=== PATIENT | female | born 1980 | race Caucasian/White ===

== ENCOUNTER 2018-05-11 09:18 | Emergency (ER) | payer MEDICAID ==
[~2018-05-11] VITALS: Ht 172.7 cm; Wt 52.0 kg
[~2018-05-11 09:18] MED LIST: ANXIETY; QUET400T6 PO
[2018-05-11 09:26] VITALS: BP 124/83
[2018-05-11] MEDS ORDERED: HYDROcodone/APAP 5/325 TABLET PO ONE (10:30)
[2018-05-11] MEDS ORDERED: HYDROcodone/APAP 5/325 TABLET ONE (10:36)
== END 2018-05-11 11:50 | disposition home or self-care (01) ==
LOC: ED 11:40
DX: S43.101A Unspecified dislocation of right acromioclavicular joint, initial encounter (principal); V89.2XXA Person injured in unspecified motor-vehicle accident, traffic, initial encounter; Y93.89 Activity, other specified; Y99.8 Other external cause status; Y92.410 Unspecified street and highway as the place of occurrence of the external cause
CPT/HCPCS: 99284

== ENCOUNTER 2018-08-29 01:02 | Emergency (ER) | payer MEDICAID ==
[~2018-08-29] VITALS: Ht 172.7 cm; Wt 53.6 kg
[~2018-08-29 01:02] MED LIST changes: -QUET400T6 PO; +QUET400T7 PO
[2018-08-29 01:07] VITALS: BP 120/85
[2018-08-29] MEDS ORDERED: IBUPROFEN 800 MG TABLET PO ONE (02:00)
== END 2018-08-29 01:53 ==
LOC: ED 01:27
DX: S01.331A Puncture wound without foreign body of right ear, initial encounter (principal); F31.9 Bipolar disorder, unspecified; F41.9 Anxiety disorder, unspecified; Z86.59 Personal history of other mental and behavioral disorders; X58.XXXA Exposure to other specified factors, initial encounter; Y93.89 Activity, other specified; Y92.89 Other specified places as the place of occurrence of the external cause; Y99.8 Other external cause status
CPT/HCPCS: 99283

== ENCOUNTER 2018-11-10 07:04 | Inpatient (IN) | payer MEDICAID, OTHER ==
[~2018-11-10] VITALS: Ht 172.7 cm; Wt 55.6 kg
[2018-11-10] MEDS ORDERED: FENTANYL PF 100 MCG/2ML ONE ×2 (08:19→09:39)
[2018-11-10] MEDS ORDERED: ONDANSETRON 2MG/ML, 2ML ONE ×2 (08:19→12:52)
[2018-11-10] MEDS ORDERED: DEXAMETHASONE 4 MG/ML, 1ML ONE ×2 (08:19→12:52)
[2018-11-10] MEDS ORDERED: ROCURONIUM 10MG/ML,5ML ONE ×2 (08:19→12:52)
[2018-11-10] MEDS ORDERED: GLYCOPYRROLATE 0.2MG/1ML, 5ML ONE ×2 (08:19→12:52)
[2018-11-10] MEDS ORDERED: SUCCINYLCHOLINE 20 MG/ML, 10ML ONE ×2 (08:19→12:52)
[2018-11-10] MEDS ORDERED: CEFAZOLIN 1,000 MG ONE ×2 (08:19→12:52)
[2018-11-10] MEDS ORDERED: NEOSTIGMINE 1 MG/ML, 10ML ONE ×2 (08:19→12:52)
[2018-11-10] MEDS ORDERED: PROPOFOL 10 MG/ML, 20ML ONE ×2 (08:19→12:52)
[2018-11-10] MEDS ORDERED: SODIUM CHLORIDE FLUSH 10ML SYR IVF PRN (08:30)
[2018-11-10] MEDS ORDERED: SODIUM CHLORIDE FLUSH 10ML SYR IVF ONE (08:30)
--- NOTE | 2018-11-10 08:45 | NUR ---
XR SHOWS FB IN THE ABD PT TO GO TO SURG FOR A SCOPE AND THEN POSS SURG
[2018-11-10] MEDS ORDERED: CEFOTETAN PMX 2GM/50ML 50 ML IVPB ONE (09:08)
[2018-11-10] MEDS ORDERED: PHENYLEPHRINE 10 MG/ML ONE (09:08)
[2018-11-10] MEDS ORDERED: MEPERIDINE/PF 25MG/0.5ML IVPush PRN ×2 (09:30→14:00)
[2018-11-10] MEDS ORDERED: OXYcodone 5 MG/5 ML ORAL.SOL UDC PO PRN ×2 (09:30→14:00)
[2018-11-10] MEDS ORDERED: ONDANSETRON 2MG/ML, 2ML IV PRN ×2 (09:30→14:00)
[2018-11-10] MEDS ORDERED: PROMETHAZINE 25 MG/ML, 1ML IV PRN ×2 (09:30→14:00)
[2018-11-10] MEDS ORDERED: FENTANYL PF 100 MCG/2ML IV PRN ×2 (09:30→14:00)
[2018-11-10] MEDS ORDERED: ACETAMINOPHEN 325 MG TABLET PO PRN ×2 (09:30→14:00)
[2018-11-10] MEDS ORDERED: ONDANSETRON ODT 8 MG PO PRN ×2 (09:30→14:00)
[2018-11-10] MEDS ORDERED: LORazepam 2 MG/ML, 1ML ONE (10:54)
[2018-11-10] MEDS: LORazepam 2 MG/ML, 1ML IVPush PRN ×2 (10:57→11:08)
[2018-11-10] MEDS ORDERED: HYDROmorphone 2 MG/ML, 1ML ONE (11:02)
[2018-11-10] MEDS: HYDROmorphone 2 MG/ML, 1ML IVPush PRN ×4 (11:04→14:19)
[2018-11-10] MEDS ORDERED: FENTANYL PF 250 MCG/5ML ONE ×2 (11:15→12:54)
[2018-11-10] MEDS ORDERED: LIDOCAINE-MPF 2% ,5ML ONE (11:46)
[2018-11-10] MEDS ORDERED: SUGAMMADEX 200 MG/2 ML IVPush ONE (12:52)
[2018-11-10] MEDS ORDERED: POTASSIUM CHLORIDE 20 MEQ in D5%-0.45% NACL 1,000 ML IV SCH (13:51)
[2018-11-10] MEDS ORDERED: LORazepam 2 MG/ML, 1ML IVPush PRN (14:00)
[2018-11-10] MEDS ORDERED: HYDROmorphone 2 MG/ML, 1ML IVPush PRN (14:00)
[2018-11-10] MEDS ORDERED: ONDANSETRON 2MG/ML, 2ML IVPush PRN ×2 (14:00→15:30)
[2018-11-10 15:15] VITALS: BP 116/17
[2018-11-10 15:32] VITALS: BP 114/81
[2018-11-10] MEDS: SODIUM CHLORIDE 0.9% 1,000 ML IV SCH (18:00)
[2018-11-10] MEDS: MORPHINE SULFATE 4 MG/ML, 1ML IVPush PRN (18:00)
[2018-11-10 18:55] VITALS: BP 107/77
[2018-11-10] MEDS: OXYcodone/APAP 5/325MG TABLET PO PRN (19:24)
[2018-11-10] MEDS: CEFOTETAN PMX 1GM/50ML 50 ML IVPB SCH (20:16)
[2018-11-11 00:15] VITALS: BP 120/72
[2018-11-11] MEDS: OXYcodone/APAP 5/325MG TABLET PO PRN ×5 (00:18→23:31)
[2018-11-11] MEDS: SODIUM CHLORIDE 0.9% 1,000 ML IV SCH (02:36)
[2018-11-11 05:06] VITALS: BP 124/72
[2018-11-11 05:49] LABS: BASOPHILS # (AUTO) 0.04 x10^3/uL (0-0.1); BASOPHILS % (AUTO) 0 % (0-1); EOSINOPHILS # (AUTO) 0.01 x10^3/uL (0-0.4); EOSINOPHILS % (AUTO) 0 % (1-7); LYMPHOCYTES # (AUTO) 3.52 x10^3/uL (1-3.4); LYMPHOCYTES % (AUTO) 24 % (22-44); MD NO; MEAN CORPUSCULAR HEMOGLOBIN 30.2 pg (27.0-34.8); MEAN CORPUSCULAR VOLUME 88.9 fL (80-100); MEAN PLATELET VOLUME 8.4 fL (7.4-10.4); MONOCYTES # (AUTO) 0.82 x10^3/uL (0.2-0.8); MONOCYTES % (AUTO) 6 % (2-9); NEUTROPHILS # (AUTO) 10.08 x10^3/uL (1.8-6.8); NEUTROPHILS % (AUTO) 70 % (42-75); PLATELET COUNT 272 x10^3/uL (130-400); RED BLOOD COUNT 3.92 x10^6/uL (3.82-5.3); RED CELL DISTRIBUTION WIDTH 14.2 % (9.6-15.2)
[2018-11-11 05:57] LABS: ALBUMIN 2.9 g/dL (3.4-5.0); ANION GAP 9 mmol/L (5-15); CHLORIDE 111 mmol/L (98-107); CREATININE 0.71 mg/dL (0.55-1.02)
[2018-11-11] MEDS ORDERED: PANTOPRAZOLE 40 MG IV IVPush SCH (07:30)
[2018-11-11] MEDS: MORPHINE SULFATE 4 MG/ML, 1ML IVPush PRN (07:53)
[2018-11-11] MEDS: CEFOTETAN PMX 1GM/50ML 50 ML IVPB SCH (07:53)
[2018-11-11 08:17] VITALS: BP 120/82
[2018-11-11 13:08] VITALS: BP 113/82
[2018-11-11] MEDS ORDERED: ENOXAPARIN 30 MG/0.3 ML SQ SCH (16:00)
[2018-11-12] VITALS (11 sets, daily range): BP systolic 100–123; BP diastolic 40–77
[2018-11-12] MEDS: OXYcodone/APAP 5/325MG TABLET PO PRN (04:06)
[2018-11-12] MEDS ORDERED: PANTOPROZOLE 40MG TABLET PO SCH (06:00)
[2018-11-12] MEDS ORDERED: OXYcodone/APAP 5/325MG TABLET PO PRN (08:00)
[2018-11-12] MEDS: DOCUSATE 100 MG CAPSULE PO SCH ×2 (09:16→20:30)
[2018-11-12] MEDS ORDERED: ENOXAPARIN 40 MG/0.4 ML SQ SCH (10:06)
[2018-11-12] MEDS ORDERED: KETOROLAC 30 MG/1 ML IM SCH (14:00)
[2018-11-12] MEDS: KETOROLAC 30 MG/1 ML IV SCH ×2 (14:22→20:30)
--- NOTE | 2018-11-12 16:54 | NUR ---
REGISTRATION,A5152 - Fall Risk Medication(s) present (DOCUSATE AND PERCOCET) and receiving anticoagulants (ENOXAPARIN). Signed: 11/12/18 at 1655 by Orly SMART
[2018-11-12] MEDS: ACETAMINOPHEN 650 MG/20.3 ML UDC PO PRN (17:53)
[2018-11-12 19:09] LABS: ANION GAP 8 mmol/L (5-15); CALCIUM 8.2 mg/dL (8.5-10.1); CHLORIDE 111 mmol/L (98-107)
[2018-11-12 19:12] LABS: ALANINE AMINOTRANSFERASE 14 U/L (12-78); ALKALINE PHOSPHATASE 73 U/L (45-117); BILIRUBIN,TOTAL 0.3 mg/dL (0.2-1.0); TOTAL PROTEIN 6.6 g/dL (6.4-8.2)
[2018-11-12 19:13] LABS: BASOPHILS # (AUTO) 0.03 x10^3/uL (0-0.1); BASOPHILS % (AUTO) 0 % (0-1); EOSINOPHILS # (AUTO) 0.16 x10^3/uL (0-0.4); EOSINOPHILS % (AUTO) 2 % (1-7); LYMPHOCYTES # (AUTO) 2.73 x10^3/uL (1-3.4); LYMPHOCYTES % (AUTO) 26 % (22-44); MD NO; MEAN CORPUSCULAR HEMOGLOBIN 30.2 pg (27.0-34.8); MEAN CORPUSCULAR HGB CONC 33.7 g/dL (32.4-35.8); MEAN CORPUSCULAR VOLUME 89.4 fL (80-100); MEAN PLATELET VOLUME 7.4 fL (7.4-10.4); MONOCYTES # (AUTO) 0.84 x10^3/uL (0.2-0.8); MONOCYTES % (AUTO) 8 % (2-9); NEUTROPHILS # (AUTO) 6.89 x10^3/uL (1.8-6.8); NEUTROPHILS % (AUTO) 65 % (42-75); PLATELET COUNT 321 x10^3/uL (130-400); RED BLOOD COUNT 4.16 x10^6/uL (3.82-5.3); RED CELL DISTRIBUTION WIDTH 13.9 % (9.6-15.2)
[2018-11-13] MEDS: KETOROLAC 30 MG/1 ML IV SCH ×2 (02:16→08:08)
[2018-11-13] MEDS: ACETAMINOPHEN 650 MG/20.3 ML UDC PO PRN ×2 (02:16→08:08)
[2018-11-13 02:19] VITALS: BP 118/83
[2018-11-13] MEDS ORDERED: OMEPRAZOLE 20 MG CAPSULE.DR PO SCH (06:00)
[2018-11-13 06:55] VITALS: BP 110/74
[2018-11-13] MEDS: DOCUSATE 100 MG CAPSULE PO SCH (08:08)
[2018-11-13 10:12] VITALS: BP 118/81
[2018-11-13] MEDS ORDERED: ACET650S21 PO (11:41)
[2018-11-13 13:00] VITALS: BP 118/62
[2018-11-13 13:48] VITALS: BP 108/76
== END 2018-11-13 14:30 | DRG 356 ==
LOC: ED 08:13 → EDIP 08:14 → ED 10:03 → 4NOR 15:24
PROVIDERS: ADMIT Internal Medicine; ATTEND Internal Medicine
PROC: 0DC68ZZ Extirpation of Matter from Stomach, Via Natural or Artificial Opening Endoscopic (ICD-10-PCS; 2018-11-10)
PROC: 0DCU0ZZ Extirpation of Matter from Omentum, Open Approach (ICD-10-PCS; principal; 2018-11-10 09:00)
DX: T18.2XXA Foreign body in stomach, initial encounter (principal); J96.01 Acute respiratory failure with hypoxia; F17.200 Nicotine dependence, unspecified, uncomplicated; F31.9 Bipolar disorder, unspecified; F41.1 Generalized anxiety disorder; Y99.8 Other external cause status; D72.829 Elevated white blood cell count, unspecified; T18.8XXA Foreign body in other parts of alimentary tract, initial encounter; F43.10 Post-traumatic stress disorder, unspecified; K66.0 Peritoneal adhesions (postprocedural) (postinfection); Z91.5 Personal history of self-harm; X83.8XXA Intentional self-harm by other specified means, initial encounter; Y93.89 Activity, other specified; Y92.89 Other specified places as the place of occurrence of the external cause
CPT/HCPCS: 36415; 72020; 73030; 74018; 74022; 76000; 99285; J3490; 70450; 70490; 71045; 80048; 80053; 82040; 84443; 84702; 85025; 88300; 88305; 93005; G0378; J0690; J1100; J1170; J1650; J1885; J2405; J2704; J2710; J3010; C1765; C9113; J0330; J2060; J2370; J7030

== ENCOUNTER 2020-11-06 14:27 | Emergency (ER) | payer MEDICAID, OTHER ==
[~2020-11-06] VITALS: Ht 172.7 cm; Wt 61.2 kg
[~2020-11-06 14:27] MED LIST changes: +ACET650S21 PO
--- NOTE | 2020-11-06 15:09 | NUR ---
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
[2020-11-06 15:42] LABS: MICROSCOPIC INDICATED
--- NOTE | 2020-11-06 15:53 | NUR ---
CC OF LOWER ABDOMINAL PAIN, "IN THE MIDDLE RIGHT ABOVE MY PUBIC AREA. I'VE HAD MORE DISCHARGE THAN NORMAL THAT IS FOUL SMELLING AND CLEAR AND STRINGY". LMP 10/24. PT STATES SHE HAD NEW SEXUAL PARTNER 1 WEEK AGO WHO WAS RECENTLY TREATED FOR CHLAMYDIA.
[2020-11-06] MEDS ORDERED: CEFTRIAXONE 1,000 MG ONE (16:21)
[2020-11-06] MEDS ORDERED: AZITHROMYCIN 250 MG TABLET ONE (16:22)
[2020-11-06 16:30] LABS: CLUE CELLS NONE SEEN (NONE SEEN); WET PREP WBCS MANY (FEW)
[2020-11-06] MEDS ORDERED: CEFTRIAXONE 1,000 MG IM ONE (16:30)
[2020-11-06] MEDS ORDERED: AZITHROMYCIN 500 MG TABLET PO ONE (16:30)
[2020-11-06 17:30] VITALS: BP 106/72
== END 2020-11-06 17:49 | disposition home or self-care (01) ==
LOC: ED 17:38
DX: A56.02 Chlamydial vulvovaginitis (principal); A56.09 Other chlamydial infection of lower genitourinary tract; N72 Inflammatory disease of cervix uteri; A54.02 Gonococcal vulvovaginitis, unspecified
CPT/HCPCS: 81001; 87077; 87086; 87210; 87491; 87591; 87808; 96372; 99283; J0696; 87186